=== PATIENT | female | born 1970 | race Caucasian/White ===

== ENCOUNTER 2019-03-24 14:53 | Emergency (ER) | payer SELFPAY ==
[~2019-03-24] VITALS: Ht 162.6 cm; Wt 78.0 kg
[2019-03-24 14:56] VITALS: Ht 162.6 cm; Wt 78.0 kg
[2019-03-24 16:57] VITALS: BP 142/80
== END 2019-03-24 16:57 | disposition home or self-care (01) ==
LOC: ED 14:53
DX: S09.8XXA Other specified injuries of head, initial encounter (principal); S16.1XXA Strain of muscle, fascia and tendon at neck level, initial encounter; M25.512 Pain in left shoulder; R07.89 Other chest pain; V43.52XA Car driver injured in collision with other type car in traffic accident, initial encounter; Y93.I9 Activity, other involving external motion; Y92.488 Other paved roadways as the place of occurrence of the external cause; Y99.8 Other external cause status